=== PATIENT | male | born 1995 | race Caucasian/White ===

== ENCOUNTER 2017-04-26 16:25 | Emergency (ER) | payer SELFPAY ==
[~2017-04-26] VITALS: Ht 195.6 cm; Wt 106.0 kg
[~2017-04-26 16:25] MED LIST: PREVACID15 MG PO; ULTRAM50 MG PO
[2017-04-26] MEDS ORDERED: KEFLEX500 MG PO (18:04)
[2017-04-26 18:17] VITALS: BP 109/77
== END 2017-04-26 18:18 | disposition home or self-care (01) ==
LOC: EME 16:25
PROC: 0HQGXZZ Repair Left Hand Skin, External Approach (ICD-10-PCS; principal; 2017-04-26)
DX: S61.012A Laceration without foreign body of left thumb without damage to nail, initial encounter (principal); S61.211A Laceration without foreign body of left index finger without damage to nail, initial encounter; W26.8XXA Contact with other sharp object(s), not elsewhere classified, initial encounter; Y93.89 Activity, other specified; Y92.89 Other specified places as the place of occurrence of the external cause
CPT/HCPCS: 99281; 99284